=== PATIENT | male | born 1950 | race Caucasian/White ===

== ENCOUNTER 2024-02-20 16:27 | Outpatient (AMB) | payer MEDICARE, OTHER, SELFPAY ==
--- NOTE | 2024-02-20 16:32 | HO.NEPHOV ---
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 He has not had any renal stones lately. He is not taking any hydrochlorothiazide now. He has an aortic aneurysm and had been followed by [facility]. His prostatic symptoms are better ever since he had the TURP procedure. He denies any orthostatic symptoms, chest pain, shortness of breath, paroxysmal nocturnal dyspnea, orthopnea, pedal edema, hematuria, UTI, fever, nausea, vomiting, diarrhea or suprapubic pain. His blood pressure has been at goal. His weights have been stable. He does not take any excessive nonsteroidal anti-inflammatories. He otherwise was feeling well. [facility] Medical History (Updated 04/20/24 @ 18:10 by Gokul Kauffman MD) Nephrolithiasis Surgical History (Updated 02/20/24 @ 16:37 by Mel Gauthier MA) H/O hernia repair S/P TURP Family History (Updated 02/20/24 @ 16:36 by Mel Gauthier MA) Mother Lung cancer Sister Lung cancer Father Heart disease Social History (Updated 02/20/24 @ 16:36 by Mel Gauthier MA) Alcohol intake: current Comment: Socially Patient Tobacco Use Status: Never used Tobacco Review of Systems Const All systems reviewed & are unremarkable except as noted in HPI and below Physical Exam Vital Signs: Last Vital Signs Pulse 63 02/20/24 16:33 BP 126/70 02/20/24 16:33 Pulse Ox 96 02/20/24 16:33 Oxygen Delivery Method Room Air 02/20/24 16:33 BMI result Body Mass Index 23.1 Const General: comfortable and no acute distress Orientation/consciousness: patient oriented x3 HEENT Head: Yes normocephalic Mouth: Normal oral and palatal mucosa present Eyes EOM: EOMs intact bilaterally Neck Neck: Yes supple Resp Auscultation: clear to auscultation bilaterally Cardio Jugular venous distension: no JVD Rate: regular rate GI Palpation (GI): Soft to palpation Auscultation: normal bowel sounds General: Yes no CVA tenderness Back/Spine/Pelvis Back: no CVA tenderness Skin General skin exam: no rashes or lesions noted Neuro General: patient oriented x3 and moves all extremities Extrem General: Yes no pedal edema Results Reviewed Nephrology Results: No Data to Display Assessment & Plan Assessment & Plan (1) Nephrolithiasis: Code(s): N20.0 - Calculus of kidney Category: Medical Plan Mr. Myers has been having renal calculi since 1999. His first recurrence was in 2014 and subsequently in 2017. He had seen urologist and had undergone ESWL. At that time he had cystoscopy as well as stent insertion. He is not passing any grit or gravel now. He has no hematuria. He is trying to maintain adequate fluid intake. His renal functions have been stable. He tries to maintain low-sodium diet and to keep up with more fruits and vegetables. He had taken hydrochlorothiazide in the past but stopped taking them now. After the next visit I plan to order a follow-up renal ultrasound for surveillance. His blood pressure has been at goal. I did not make any medication changes today. All these have been discussed in detail. He had the opportunity to ask questions and all were answered to satisfaction. Follow-up appointment given. Coding Level of Care Code Est Pt Level 4 (97476) Diagnoses Nephrolithiasis N20.0
[2024-02-20 16:33] VITALS: BP 126/70; PULSE 63; O2SAT 96; BMI 23.1
== END 2024-02-20 16:59 | disposition home or self-care (01) ==
PROVIDERS: PCP Pediatrics; Visit Provider Internal Medicine Nephrology
DX: N20.0 Calculus of kidney (principal)
CPT/HCPCS: 99214

== ENCOUNTER → 2024-02-20 16:27 | Outpatient (BNVA) | payer OTHER, SELFPAY | PROVIDERS: PCP Pediatrics; Visit Provider Internal Medicine Nephrology ==

== ENCOUNTER 2024-08-20 10:10 | Outpatient (AMB) | payer OTHER, SELFPAY ==
--- OUTSIDE RECORDS SUMMARY | 2024-08-20 10:19 | XMS_ITS | Continuity of Care Document ---
Author Organization [facility] Address [address] [place], [place] [address]- [facility] [place] [facility] [place] Name Relationship Address Phone SRINATH LOMAS Personal Relationship Unknown Unav ailable SAUNDERS, JANETTE Personal Relationship Unknown Unavai lable SAUNDERS, JANETTE Personal Relationship Unknown Unavai lable LINDFORS, SRINATH Personal Relationship Unknown Unav ailable LINDFORE, SRINATH Personal Relationship Unknown Unav ailable SAUNDERS, SRINATH Personal Relationship Unknown Unavai lable LINDFORS, SRINATH Personal Relationship Unknown Unav ailable LINDFORS, SRINATH spouse Unknown Unavailable LINDFORS, SRINATH A Personal Relationship Unknown Un available LINDFORS, SRINATH Personal Relationship Unknown Unav ailable LINDFORE, SRINATH Personal Relationship Unknown Unav ailable LINDFORS, SRINATH Personal Relationship Unknown Unav ailable LINDFORS, SRINATH Personal Relationship Unknown Unav ailable Care Team Providers Care Loan Adviser Name Role Phone Sofie Dhillon DO Primary Care Physician ( [phone] Encounter [facility]CT R [id number] Date(s): 06/24/24 - 07/24/24 [facility] [address] [place] [address] Attending Physician: AdmBuster nichole Admitting Physician: trBuster Referring Physician: Admtr, Ar8 Encounter Type: Triage Allergies, Adverse Reactions, Alerts No Known Medication Allergies Immunizations Given and Recorded Vaccine Date Status Refusal Reason zoster vaccine, inactivated 08/08/23 Recorded influenza virus vaccine, inactivated 08/08/23 Bryon rded influenza virus vaccine, inactivated 06/20/22 Bryon rded influenza virus vaccine, inactivated 1 06/27/21 Gi christiane influenza virus vaccine, inactivated 06/16/20 Bryon rded influenza virus vaccine, inactivated 07/16/19 Bryon rded influenza virus vaccine, inactivated 07/14/18 Bryon rded influenza virus vaccine, inactivated 07/10/17 Bryon rded influenza virus vaccine, inactivated 07/12/15 Bryon rded influenza virus vaccine, inactivated 07/14/14 Bryon rded SARS-CoV-2 mRNA ([id number]) vax 06/20/22 Recorded SARS-CoV-2 (COVID-19) mRNA-1273 vaccine 07/06/21 R ecorded SARS-CoV-2 (COVID-19) mRNA-1273 vaccine 10/27/20 R ecorded SARS-CoV-2 (COVID-19) mRNA-1273 vaccine 09/30/20 R ecorded pneumococcal 13-valent vaccine 2 05/04/21 Given tetanus/diphtheria/pertussis, acel(Tdap) 3 01/13/21 Given pneumococcal 23-valent vaccine 4 05/03/20 Given 1Result Comment: [facility]# [id number] 2Result Comment: [id number] 3Result Comment: [facility]# [id number] 4Result Comment: [facility]#[id number] Medications Aspirin Low Dose 81 mg oral delayed release tablet 1 tablet, By Mouth, Daily, # 90 tablet, 3 Refills, Maintenance, 03/06/24 12:01:00 PM EDT, [id number], 183, cm, 02/14/24 8:40:00 EDT, Height, 74.7, kg, 02/14/24 8:40:00 EDT, Dry Weight Start Date: 03/06/24 Stop Date: 04/05/24 Status: Ordered Quantity: 90.0 Unit: tablet Repeat number: 1 Aspirin Low Dose 81 mg oral delayed release tablet 1 tablet, By Mouth, Daily, # 90 tablet, 3 Refills, Maintenance, 04/29/23 11:41:00 AM EDT, [facility], 183, cm, 03/20/23 8:08:00 EDT, Height, 80, kg, 02/27/22 21:28:00 EDT, Dry Weight Start Date: 04/29/23 Stop Date: 05/29/23 Status: Ordered Quantity: 90.0 Unit: tablet Repeat number: 1 atorvastatin 80 mg oral tablet 1 tablet, By Mouth, Daily at bedtime, # 90 tablet, 3 Refills, Maintenance, 07/20/24 7:20:00 AM EST,[facility]/pharmacy #[id number], 183, cm, 06/24/24 8:45:00 EDT, Height, 74.7, kg, 02/14/24 8:40:00 EDT, Dry Weight Start Date: 07/20/24 Status: Ordered Quantity: 90.0 Unit: tablet Repeat number: 4 baclofen 5 mg oral tablet 1 tablet = 5 mg, By Mouth, 3 times a day, PRN Spasm, # 30 tablet, 0 Refills, Maintenance, 05/30/22 8:05:00 AM EDT, Tablet, [facility]/pharmacy #[id number], Partial fill upon patient request if the prescription is for a schedule II opioid drug., 183, cm, 05/24/22 13:32:00 EDT, Height, 80, kg, 02/27/22 21:28:00 EDT, Dry Weight Start Date: 05/30/22 Stop Date: 06/09/22 Status: Ordered Quantity: 30.0 Unit: tablet Repeat number: 1 Compression Stockings See Instructions, # 2 each, Refills 1, Tot. Refills 1, Maintenance, surgical, calf length 20-30 mm Hg, 02/14/24 9:17:00 AM EDT, Supply Start Date: 02/14/24 Status: Ordered Quantity: 2.0 Unit: each Repeat number: 2 Indication: Peripheral vascular disease, unspecified gabapentin 100 mg oral capsule 1, capsule, By Mouth, Daily at bedtime, # 30 capsule, Refills 2, Tot. Refills 2, Maintenance, 04/29/24 10:24:00 AM EDT, Route to Pharmacy Electronically, [facility]/pharmacy #[id number], 183, cm, 02/14/24 8:40:00 EDT, Height, 74.7, kg, 02/14/24 8:40:00 EDT, Dry Weight Start Date: 04/29/24 Status: Ordered Quantity: 30.0 Unit: capsule Repeat number: 3 Toprol XL 25 mg oral tablet, extended release 12.5 mg, 0.5, tablet, By Mouth, Daily, # 30 tablet, Refills 5, Tot. Refills 5, Maintenance, :01:00 PM EST, Route to Pharmacy Electronically, [facility]/pharmacy #[id number], Partial fill upon patient request if the prescription is for a schedule II opioid drug., 183, cm, 07/18/23 8:32:00 EST, Height, 80, kg, 02/27/22 21:28:00 EDT, Dry Weight Start Date: 09/20/23 Status: Ordered Quantity: 30.0 Unit: tablet Repeat number: 6 Vitamin D3 50,000 intl units oral capsule 1 capsule = 1,250 mcg, By Mouth, Every week, with food, # 13 capsule, 0 Refills, Maintenance, 11/08/23 11:37:00 AM EST, Capsule, [facility]/pharmacy #[id number], Partial fill upon patient request if the prescription is for a schedule II opioid drug., 183, cm, 11/05/23 12:43:00 EST, Height, 80, kg, 02/27/22 21:28:00 EDT, Dry Weight Start Date: 11/08/23 Stop Date: 02/06/24 Status: Ordered Quantity: 13.0 Unit: capsule Repeat number: 1 Problem List Condition Confirmation Course Effective Dates Status H ealth Status Informant Anemia Confirmed Active Ascending aortic aneurysm 4.5 cm 04/2021 Confirmed Active BPH (benign prostatic hyperplasia) TURP Oct 2020 Confirmed Active CAD (coronary artery disease) Confirmed Active Personal history of colonic polyps Confirmed 10/03/20 Active HLD (hyperlipidemia) Confirmed Active Glucose intolerance (impaired glucose tolerance) Confirmed Active Interstitial lung disease-Sarcoidosis Confirmed Active Nephrolithiasis Confirmed Active Hx of nephrolithotomy with removal of calculi Confirmed Active Vitamin D deficiency Confirmed Active Social History Social History Type Response Smoking Status Never (less than 100 in lifetime) entered on: 11/20/19 Sex Sex Representation Male (finding) Patient Care team information Care Team Personnel Name: Sofie Dhillon DO Position: [facility] Physician - Primary Care Member Role: PCP Address: [address] [place] [address] Adult [place] [address]- Telecom: Name: Mel Gauthier Position: [facility] AMB Nurse Member Role: Lifetime Consulting Physician Name: Raymundo Mcnally RN Position: [facility] RN Member Role: Primary Care Nurse Care Team Related Persons Name: SRINATH LOMAS Insurance Providers Guarantor name: LARISA SAUNDERS [place] Plan Information #: 1 Payer: MEDICARE PART B OUTPT Member Number: NA Policy Number: NA Group Number: NA Health Plan Information #: 2 Payer: [facility] Member Number: NA Policy Number: NA Group Number: NA
--- OUTSIDE RECORDS SUMMARY | 2024-08-20 10:19 | XMS_ITS | Continuity of Care Document ---
Author Organization [facility] Address [address] [place] [address]- Care Team Providers Care Industrial Relations Manager Name Role Phone Sofie Dhillon DO Primary Care Physician [place] [facility] [place] 08/07/24 - 08/14/24 [facility] [address] [place], [place] [address] Encounter Diagnosis Left hip pain(Discharge Diagnosis) - 08/07/24 CAD (coronary artery disease)(Discharge Diagnosis) - 08/07/24 Attending Physician: Linda Bender MD Encounter Type: Office Visit Allergies, Adverse Reactions, Alerts No Known Medication [...] vaccine, inactivated 07/14/14 Bryon rded SARS-CoV-2 mRNA ([id number]) vax 06/20/22 Recorded SARS-CoV-2 (COVID-19) mRNA-1273 vaccine 07/06/21 R ecorded SARS-CoV-2 (COVID-19) mRNA-1273 vaccine 10/27/20 R ecorded SARS-CoV-2 (COVID-19) mRNA-1273 vaccine 09/30/20 R ecorded pneumococcal 13-valent vaccine 2 05/04/21 Given tetanus/diphtheria/pertussis, acel(Tdap) 3 01/13/21 Given pneumococcal 23-valent vaccine 4 05/03/20 Given 1Result Comment: [facility]# [id number] 2Result Comment: [id number] 3Result Comment: [facility]# [id number] 4Result Comment: [facility]#[id number] Medications Aspirin Low Dose 81 mg oral delayed release tablet 1 tablet, By Mouth, Daily, # 90 tablet, 3 Refills, Maintenance, 03/06/24 12:01:00 PM EDT, [id number], 183, cm, 02/14/24 8:40:00 EDT, Height, 74.7, kg, 02/14/24 8:40:00 EDT, Dry Weight Start Date: 03/06/24 Stop Date: 04/05/24 Status: Ordered Quantity: 90.0 Unit: tablet Repeat number: 1 Aspirin Low Dose 81 mg oral delayed release tablet 1 tablet, By Mouth, Daily, # 90 tablet, 3 Refills, Maintenance, 04/29/23 11:41:00 AM EDT, [facility], 183, cm, 03/20/23 8:08:00 EDT, Height, 80, kg, 02/27/22 21:28:00 EDT, Dry Weight Start Date: 04/29/23 Stop Date: 05/29/23 Status: Ordered Quantity: 90.0 Unit: tablet Repeat number: 1 atorvastatin 80 mg oral tablet 1 tablet, By Mouth, Daily at bedtime, # 90 tablet, 3 Refills, Maintenance, 07/20/24 7:20:00 AM EST,[facility]/pharmacy #0950, 183, cm, 06/24/24 8:45:00 EDT, Height, 74.7, kg, 02/14/24 8:40:00 EDT, Dry Weight Start Date: 07/20/24 Status: Ordered Quantity: 90.0 Unit: tablet Repeat number: 4 baclofen 5 mg oral tablet 1 tablet = 5 mg, By Mouth, 3 times a day, PRN Spasm, # 30 tablet, 0 Refills, Maintenance, 05/30/22 8:05:00 AM EDT, Tablet, [facility]/pharmacy #0950, Partial fill upon patient request if [...] at bedtime, # 30 capsule, Refills 2, Maintenance, 08/12/24 10:58:00 AM EST, Route to Pharmacy Electronically, [facility] 404[facility], 183, cm, 08/07/24 10:02:00 EST, Height, 74.7,kg, 02/14/24 8:40:00 EDT, Dry Weight Start Date: 08/12/24 Status: Ordered Quantity: 30.0 Unit: capsule Repeat number: 1 naproxen 500 mg oral tablet 1 tablet = 500 mg, By Mouth, 2 times a day, with food;, # 28 tablet, 0 Refills, Maintenance, 08/07/24 10:14:00 AM EST, Tablet, [facility]/pharmacy #[id number], Partial fill upon patient request if the prescription is for a schedule II opioid drug., 183, cm, 08/07/24 10:02:00 EST, Height, 74.7, kg, 02/14/24 8:40:00 EDT, Dry Weight Start Date: 08/07/24 Stop Date: 08/21/24 Status: Ordered Quantity: 28.0 Unit: tablet Repeat number: 1 Toprol XL 25 mg oral tablet, extended release 12.5 mg, 0.5, tablet, By Mouth, Daily, # 30 tablet, Refills 5, Tot. Refills 5, Maintenance, :01:00 PM EST, Route to Pharmacy Electronically, [facility]/pharmacy #[id number], Partial fill upon patient request if [...] Refills, Maintenance, 11/08/23 11:37:00 AM EST, Capsule, [facility]/pharmacy #0950, Partial fill upon patient request if [...] Confirmed Active Vitamin D deficiency Confirmed Active Diagnosis Diagnosis Type Effective Dates Health Status Cl inical Service Informant Left hip pain Discharge Diagnosis 08/07/24 CAD (coronary artery disease) Discharge Diagnosis 08/07/24 Vital Signs Most recent to oldest [Reference Range]: 1 Height 183 cm (08/07/24 10:02 AM) Weight 80.0 kg (08/07/24 10:02 AM) Oxygen Saturation [94-100 %] 99 % (08/07/24 10:02 AM) Pulse Rate [55-90 bpm] 65 bpm (08/07/24 10:02 AM) Body Mass Index [18.5-24.99 kg/m2] 23.89 kg/m2 (08/07/24 10:02 AM) Blood Pressure [90-138/55-84 mm Hg] 129/ 69mm Hg (08/07/24 10:02 AM) Blood pressure sites Arm, left (08/07/24 10:02 AM) Weight Obtained Via Standing scale (08/07/24 10:02 AM) Social History Social History Type Response Smoking Status Never (less than 100 in lifetime) entered on: 11/20/19 Sex Sex Representation Male (finding) Note * Delilah Yuan: PERFORM Event Display: Patient Education/Instruction Authored Date: [id number] Ambulatory Adult Visit Summary [facility] [address] [place] [address] Name: LARISA SAUNDERS : 1950?? Visit: 08/07/2024 09:50?? Ambulatory Visit Instructions ?? Your Care Team Primary Care Provider Sofie Dhillon DO? This Visit Provider Linda Bender MD Your Diagnosis Left hip pain CAD (coronary artery disease) Vitals Signs Pulse Rate: 65 bpm Height: 183 cm Systolic Blood Pressure: 129 mm Hg Weight: 80 kg Diastolic Blood Pressure: 69 mm Hg Body Mass Index: 23.89 kg/m2 Oxygen Saturation: 99 % Body surface area: 2.02 What to do next Instructions From Your Provider try naproxen twice a day for 2 weeks; stop aspirin for 2 weeks referral for physical therapy for hip pain Scheduled Follow-Up Appointments 2023 1:20 PM EST ?? With: Sofie Dhillon DO Where: [facility] [address] [place] [address]- Status: Pending Future Orders Vitamin D 25 Hydroxy Level - Routine, Once, 02/06/24 12:31:00 EDT, Order for Today, [facility], Blood?? CBC w/ Differential - Routine, Once, 02/14/24 9:09:00 EDT, Order for Today, [facility], Blood?? Medications The list below reflects the information in our records and provided by you today along with any changes made during this visit. Please continue your medications until treatment is completed or stopped by your provider. If this is different from the information you have or there are other questions,please contact the prescribing provider. What How Much When Why Instructions New Naproxen (naproxen 500 mg oral tablet) 1 tab(s) Oral Twice a day Duration: 14 Days with food; ?? Pickup at [facility]/pharmacy #0977 Unchanged Aspirin (Aspirin Low Dose 81 mg oral delayed release tablet) 1 tab(s) Oral Daily Duration: 30 Days Unchanged Aspirin (Aspirin Low Dose 81 mg oral delayed release tablet) 1 tab(s) Oral Daily Duration: 30 Days Unchanged Atorvastatin (atorvastatin 80 mg oral tablet) 1 tab(s) Oral Daily at Bedtime Unchanged Baclofen (baclofen 5 mg oral tablet) 1 tab(s) Oral 3 times a day as needed for Spasm Duration: 10 Days Unchanged Cholecalciferol (Vitamin D3 50,000 intl units oral capsule) 1 capsule Oral Every week Duration: 90 Days with food ?? Unchanged Durable Medical Equipment (Compression Stockings) See instructions Peripheral vascular disease surgical, calf length 20-30 mm Hg ?? Unchanged Gabapentin (gabapentin 100 mg oral capsule) 1 capsule Oral Daily at Bedtime Unchanged Metoprolol (Toprol XL 25 mg oral tablet, extended release) 0.5 tab(s) Oral Daily Pharmacy Information [facility]/pharmacy #[id number]: [address] [place] [address] [phone] Medications and Immunizations Administered Medications Given During Visit No medications given during this visit.?? Allergies (NKA means No Known Allergies) No Known Medication Allergies Common Emergency Awareness Tips IS IT A STROKE? Act FAST and Check for these signs: FACE Does the face look uneven? ARM Does one arm drift down? SPEECH Does their speech sound strange? TIME Call at any sign of stroke ?? Heart Attack Signs Chest discomfort: Most heart attacks involve discomfort in the center of the chest and lasts more than a few minutes, or goes away and comes back. It can feel like uncomfortable pressure, squeezing, fullness or pain. Discomfort in upper body: Symptoms can include pain or discomfort in one or both arms, back, neck, jaw or stomach. Shortness of breath: With or without discomfort. Other signs: Breaking out in a cold sweat, nausea, or lightheaded. Remember, MINUTES DO MATTER. If you experience any of these heart attack warning signs, call to get immediate medical attention! ?? Smoking can increase your chances of developing chronic health problems and can cause harmful effects to other family members in your house. If you smoke, you are strongly encouraged to quit. Please call [employer] at [phone] or 4-138-316Traxo ([phone]) or log in to www.[facility] [employer] [employer]org for referrals to smoking cessation programs. ?? The National Suicide Prevention Hotline is available 01/04 if you or someone you know needs to find a reason to keep living. By calling 2-714-717-[employer] (4439) you'll be connected to a skilled, trained counselor at a crisis center in your area. [facility] Portal You can view and manage your care through the patient portal or by using a health care becca of your choosing. [employer] is a website that allows you to securely view your medical information including your hospital discharge summary, office visit summaries, medications and follow-up visits. You can also request appointments, renew medications, and request access to your medical information using a health care becca of your choosing, or just ask a question. You can enroll at [email or web address] [employer]org or register during your next office visit. [facility], in keeping with [facility] guidance, no longer requires face masks for staff, patientsor visitors in most situations. Similiar to time spent indoors at other locations, there is the chance that you were exposed to repiratory viruses during your time with us (such as flu or COVID-19). If you develop symptoms concerning for a viral respiratory infection, please seek testing (and treatment if indicated) from your medical provider or home test kit. ?? Disclaimer: The information provided is of a general nature and is intended to be used in conjunction with the recommendations and advice of your health care practitioner. Every effort has been made to ensure that the information provided is accurate and complete at the time it is provided to you however, as your needs change, or, as new information becomes available, different or additional instructions may be required. ?? If you have questions, please consult with your primary care provider or pharmacist, as appropriate. This information is not intended to serve as substitution for assessment and evaluation by a qualified health care provider. If you do not have a primary care provider, you may find a [facility] provider by calling [facility] at [phone]. Patient Care team information Care Team Personnel Name: Sofie Dhillon DO Position: [facility] Physician - Primary Care Member Role: PCP Address: [address] [place] [address] Adult & Pediatric Medicine [address] Telecom: Name: Mel Gauthier Position: [facility] AMB Nurse Member Role: Lifetime Consulting Physician Name: Raymundo Mcnally RN Position: [facility] RN Member Role: Primary Care Nurse Care Team Related Persons Name: SRINATH LOMAS Insurance Providers Guarantor name: LARISA SAUNDERS Health Plan Information #: 2 Payer: [facility] Member Number: [id number] Policy Number: NA Group Number: [id number] Health Plan Information #: 1 Payer: MEDICARE PART B OUTPT Member Number: [id number] Policy Number: NA Group Number: NA
--- NOTE | 2024-08-20 10:24 | HO.NEPHOV_ITS ---
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 He has not had any renal stones lately. He is not taking any hydrochlorothiazide now. He has an aortic aneurysm and had been followed by [facility]. His prostatic symptoms are better ever since he had the TURP procedure. He denies any orthostatic symptoms, chest pain, shortness of breath, paroxysmal nocturnal dyspnea, orthopnea, pedal edema, hematuria, UTI, fever, nausea, vomiting, diarrhea or suprapubic pain. His blood pressure has been at goal. His weights have been stable. He does not take any excessive nonsteroidal anti- inflammatories. He otherwise was feeling well. [facility] Medical History (Updated 04/20/24 @ 18:10 by Gokul Kauffman MD) Nephrolithiasis Surgical History H/O hernia repair S/P TURP Family History Mother Lung cancer Sister Lung cancer Father Heart disease Social History Alcohol intake: current Comment: Socially Patient Tobacco Use Status: Never used Tobacco Review of Systems Const All systems reviewed & are unremarkable except as noted in HPI and below Physical Exam Vital Signs: Last Vital Signs BP 102/70 08/20/24 10:25 BMI result Body Mass Index 24.1 Const General: comfortable and no acute distress Orientation/consciousness: patient oriented x3 HEENT Head: Yes normocephalic Mouth: Normal oral and palatal mucosa present Eyes EOM: EOMs intact bilaterally Neck Neck: Yes supple Resp Auscultation: clear to auscultation bilaterally Cardio Jugular venous distension: no JVD Rate: regular rate GI Palpation (GI): Soft to palpation Auscultation: normal bowel sounds General: Yes no CVA tenderness Back/Spine/Pelvis Back: no CVA tenderness Skin General skin exam: no rashes or lesions noted Neuro General: patient oriented x3 and moves all extremities Extrem General: Yes no pedal edema Results Reviewed Nephrology Results: No Data to Display Assessment & Plan Assessment & Plan (1) Nephrolithiasis: Code(s): N20.0 - Calculus of kidney Category: Medical Plan Mr. Myers has been having renal calculi since 1999. His first recurrence was in 2014 and subsequently in 2017. He had seen urologist and had undergone ESWL. He has a follow up USS with Urology. He had cystoscopy as well as stent insertion in the past . He is not passing any grit or gravel now. He has no hematuria. He is trying to maintain adequate fluid intake. His renal functions have been stable. He tries to maintain low-sodium diet and to keep up with more fruits and vegetables. He had taken hydrochlorothiazide in the past but stopped taking them now. His blood pressure has been at goal. I did not make any medication changes today. All these have been discussed in detail. He had the opportunity to ask questions and all were answered to satisfaction. Follow-up appointment given Orders: Orders 2 Blood Urea Nitrogen 1 Year N20.0 - Calculus of kidney Electrolytes 1 Year N20.0 - Calculus of kidney Creatinine 1 Year N20.0 - Calculus of kidney Calcium 1 Year N20.0 - Calculus of kidney Coding Level of Care Code Est Pt Level 4 (47482) Diagnoses Nephrolithiasis N20.0
[2024-08-20 10:25] VITALS: BP 102/70; BMI 24.1
== END 2024-08-20 10:59 | disposition home or self-care (01) ==
PROVIDERS: PCP Pediatrics; Visit Provider Internal Medicine Nephrology
DX: N20.0 Calculus of kidney (principal)
CPT/HCPCS: 99214

== ENCOUNTER 2025-08-31 10:00 | Outpatient (AMB) | payer OTHER, SELFPAY ==
[2025-08-31 10:04] VITALS: BP 98/62; PULSE 53; O2SAT 99; BMI 25.1
--- NOTE | 2025-08-31 10:04 | HO.NEPHOV_ITS ---
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 He has not had any renal stones lately. He is not taking any hydrochlorothiazide now. He has an aortic aneurysm and had been followed by [facility]. His prostatic symptoms are better ever since he had the TURP procedure. He denies any orthostatic symptoms, chest pain, shortness of breath, paroxysmal nocturnal dyspnea, orthopnea, pedal edema, hematuria, UTI, fever, nausea, vomiting, diarrhea or suprapubic pain. His blood pressure has been at goal. His weights have been stable. He does not take any excessive nonsteroidal anti- inflammatories. He otherwise was feeling well. [facility] Medical History (Updated 08/31/25 @ 10:06 by JUDD Gee) H/O nephrolithotomy with removal of calculi (~05/2025) Nephrolithiasis Surgical History H/O hernia repair S/P TURP Family History Mother Lung cancer Sister Lung cancer Father Heart disease Social History Alcohol intake: current Comment: Socially Patient Tobacco Use Status: Never used Tobacco Review of Systems Const All systems reviewed & are unremarkable except as noted in HPI and below Physical Exam Vital Signs: Last Vital Signs Pulse 53 08/31/25 10:04 BP 98/62 08/31/25 10:04 Pulse Ox 99 08/31/25 10:04 Oxygen Delivery Method Room Air 08/31/25 10:04 BMI result Body Mass Index 25.1 Const General: comfortable and no acute distress Orientation/consciousness: patient oriented x3 HEENT Head: Yes normocephalic Mouth: Normal oral and palatal mucosa present Eyes EOM: EOMs intact bilaterally Neck Neck: Yes supple Resp Auscultation: clear to auscultation bilaterally Cardio Jugular venous distension: no JVD Rate: regular rate GI Palpation (GI): Soft to palpation Auscultation: normal bowel sounds General: Yes no CVA tenderness Back/Spine/Pelvis Back: no CVA tenderness Skin General skin exam: no rashes or lesions noted Neuro General: patient oriented x3 and moves all extremities Extrem General: Yes no pedal edema Assessment & Plan Assessment & Plan (1) Nephrolithiasis: Code(s): N20.0 - Calculus of kidney Category: Medical Plan Mr. Myers has been having renal calculi since 1999. His first recurrence was in 2014 and subsequently in 2017. He had seen urologist and had undergone ESWL. He has a follow up USS with Urology. He had cystoscopy as well as stent insertion in the past . He is not passing any grit or gravel now. He has no hematuria. He is trying to maintain adequate fluid intake. His renal functions have been stable. He tries to maintain low-sodium diet and to keep up with more fruits and vegetables. He had taken hydrochlorothiazide in the past but stopped taking them now. His blood pressure has been at goal. I did not make any medication changes today. All these have been discussed in detail. He had the opportunity to ask questions and all were answered to satisfaction. Follow-up appointment given Orders: Orders Calcium 1 Year N20.0 - Calculus of kidney Protein Creatinine Ratio, Ur 1 Year N20.0 - Calculus of kidney UA and rflx microscopic 1 Year N20.0 - Calculus of kidney Electrolytes 1 Year N20.0 - Calculus of kidney Blood Urea Nitrogen 1 Year N20.0 - Calculus of kidney Creatinine 1 Year N20.0 - Calculus of kidney Coding Level of Care Code Est Pt Level 4 (53476) Diagnoses Nephrolithiasis N20.0
--- OUTSIDE RECORDS SUMMARY | 2025-08-31 11:03 | XMS_ITS | Clinical Summary ---
Author Organization [facility] Address [address] [place] [address] Phone Care Team Providers Care Custodial Worker Name Role Phone Sofie Dhillon Miller Primary Care Provider Allergies No known active allergies Medications aspirin 81 mg EC tablet Take 1 tablet (81 mg total) by mouth 1 (one) time each day. Active gabapentin (NEURONTIN) 100 mg capsule Take 1 capsule (100 mg total) by mouth at bedtime. 5 Active atorvastatin (LIPITOR) 80 mg tablet Take 1 tablet (80 mg total) by mouth at bedtime. 5 Active metoprolol succinate (TOPROL-XL) 25 mg 24 hr tablet Take 0.5 tablets (12.5 mg total) by mouth 1 (one) time each day. 5 Active amoxicillin (AMOXIL) 500 mg capsule Take 1 capsule (500 mg total) by mouth every 12 (twelve) hours. 5 08/25/20 25 Discontinu ed(Therapy completed) phenazopyridine (PYRIDIUM) 200 mg tablet Take 1 tablet (200 mg total) by mouth every 8 (eight) hours if needed (urinary discomfort). 21 tablet 5 08/25/20 25 Discontinu ed(Therapy completed) Surgical History Surgery Date Site/Laterality Comments OTHER SURGICAL HISTORY KIDNEY STONE SURGERY COLONOSCOPY TRANSURETHRAL RESECTION OF PROSTATE HERNIA REPAIR Right INGUINAL WITH MESH Medical History Medical History Date Comments Myocardial infarction (CMS/HCC V24, CMS/HCC V28) Heart disease blocked artery Hernia, inguinal Neuromuscular disorder (CMS/HCC V24, CMS/HCC V28 ) Hyperlipidemia Chronic kidney disease Sarcoidosis Social History Tobacco Use Types Packs/Day Years Used Date Smoking Tobacco: Never Smokeless Tobacco: Never Tobacco Cessation:Counseling Given: Not Answered Alcohol Use Standard Drinks/Week Comments Yes 0 (1 standard drink = 0.6 oz pur e alcohol) BEER WEEKLY Interpersonal Safety Answer Date Record ed Physical Abuse Unrecognized value 05/28/2025 Verbal Abuse Unrecognized value 05/28/2025 Sex and Gender Information Value Date Recorded Sex Assigned at Not on file Legal Sex Male 1:47 PM EST Gender Identity Not on file Sexual Orientation Not on file Last Filed Vital Signs Vital Sign Reading Time Taken Comments Blood Pressure 123/79 05/28/2025 10:10 AM EDT Pulse 64 05/28/2025 10:10 AM EDT Temperature 36.5 C (97.7 F) 05/28/2025 9:35 AM EDT Respiratory Rate 12 05/28/2025 10:10 AM EDT Oxygen Saturation 96% 05/28/2025 10:10 AM EDT Inhaled Oxygen Concentration - - Weight 79.4 kg (175 lb) 08/25/2025 8:00 AM EST Height 182.9 cm (6') 08/25/2025 8:00 AM EST Body Mass Index 23.73 08/25/2025 8:00 AM EST Plan of Treatment Upcoming Encounters Date Type Department Care Team (Late st Contact Info) Description 09/01/2025 7:30 AM EST Hospital Encounter [facility] Endoscopy [address] [place] [id number] Mark Kurtz MD [address] [address] Jamari Rodriguez MD [address] [place] [id number] Domenic Boudreaux CRNA [address] [place] [id number] Health Maintenance Due Date Last Done Comments Hepatitis A Vaccines (1 of 2 - Risk 2-dose series) 1968 Hepatitis B Vaccines (1 of 3 - Risk 3-dose series) 2009 Depression Screening 09/09/2024 RSV Immunization Adult Patients (1 - 1-dose 75+ series) 2024 Cholesterol Screening (Lipid Panel) 04/02/2025 Hepatitis C Screening 04/02/2025 Medicare Annual Wellness Visit 04/02/2025 Social Influencers of Health Screening 04/02/2025 COVID-19 Vaccine ( season) 2025 06/18/2024, 06/12/2023, 06/20/2022, Additional history exists Influenza Vaccine (#1) 2025 , 08/08/2023, 06/20/2022, Additional history exists Falls Risk Assessment 05/28/2026 05/28/2025 Hypertension/CHF/CAD Annual BMP Blood Test 05/28/2026 05/28/2025 Colorectal Cancer Screening: Colonoscopy 10/03/2030 10/03/2020 DTaP,Tdap,and Td Vaccines (2 - Td or Tdap) 01/13/2031 01/13/2021 Pneumococcal Vaccine: 50+ Years Completed 05/04/2021, 05/03/2020 Zoster Vaccines Completed 05/05/2024, 08/08/2023 HIB Vaccines Aged Out No longer eligi ble based on patient's age to complete this topic HPV Vaccines Aged Out No longer eligi ble based on patient's age to complete this topic IPV Vaccines Aged Out No longer eligi ble based on patient's age to complete this topic MMR Vaccines Aged Out No longer eligi ble based on patient's age to complete this topic Meningococcal ACWY Vaccine Aged Out N o longer eligible based on patient's age to complete this topic Meningococcal B Vaccine Aged Out No l onger eligible based on patient's age to complete this topic RSV Immunization Patients Under 20 months Aged Out No longer eligible based on patient's age to complete this topic Varicella Vaccines Aged Out No longer eligible based on patient's age to complete this topic Medical Devices Implanted Type Area Building Services Coordinator Device Identifier Shelf Expiration Date Model / Serial / Lot Stent Uret [id number] Contr Percuflex Hydroplus - Sna - [id number] Implanted:Qty: 1 on 05/28/2025 by Ej Vergara MD at [facility] Stents Left: Ureter [employer]GYN[employer] Y 02/26/2028 [id number] / NA / [id number] Procedures Procedure Name Priority Date/Time Associated Diagnosis Comments BASIC METABOLIC PANEL Routine 05/28/2025 6:22 AM EDT COLONOSCOPY Routine 10/03/2020 11:11 AM EST from Last 3 Months or Most Recently Relevant to Health Maintenance Results * Basic metabolic panel (05/28/2025 6:22 AM EDT) Sodium 142 133 - 145 mmol/L LAB CHEMISTRY METHOD 05/28/2025 7:[address] [facility] Potassium 4.3 3.5 - 5.5 mmol/L LAB CHEMISTRY METHOD 05/28/2025 7:[address] [facility] Chloride 110 96 - 110 mmol/L LAB CHEMISTRY METHOD 05/28/2025 7:[address] [facility] CO2 26 21 - 32 mmol/L LAB CHEMISTRY METHOD 05/28/2025 7:[address] [facility] Anion Gap 6 3 - 11 LAB CHEMISTRY METHOD 05/28/2025 7:[address] [facility] Glucose 95 70 - 100 mg/dL LAB CHEMISTRY METHOD 05/28/2025 7:[address] [facility] BUN 22 5 - 25 mg/dL LAB CHEMISTRY METHOD 05/28/2025 7:[address] [facility] Creatinine 0.91 0.70 - 1.30 mg/dL LAB CHEMISTRY METHOD 05/28/2025 7:[address] [facility] eGFR 88 >=60 mL/min/1. 73m2 LAB CHEMISTRY METHOD 05/28/2025 7:[address] [facility] Comment:Calculation based on the Chronic Kidney Disease Epidemiology Collaboration (CKD-EPI) equation refit without adjustment for race. BUN/Creatinine Ratio 24.2 LAB CHEMISTRY METHOD 05/28/2025 7:[address] [facility] Calcium 9.3 8.5 - 10.5 mg/dL LAB CHEMISTRY METHOD 05/28/2025 7:35 AM EDT [facility] Blood Venous blood specimen / Unknown Venipuncture / Unknown 05/28/2025 6:22 AM EDT 05/28/2025 6:37 AM EDT Ej Vergara MD LAB BLOOD ORDERABLES Final Resul t [facility] ([facility] [address] [place] [address], * COLONOSCOPY (10/03/2020 11:11 AM EST) Anatomical Region Laterality Modality Endoscopy Historical Provider GI~PROCEDURE ORDERABLES F inal Result from Last 3 Months or Most Recently Relevant to Health Maintenance Insurance MEDICARE [facility] MEGHA RAMOS [id number] Advance Directives Documents on File Type Date Recorded 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 Health Care Decision (hx) 10/24/2020 AD PARKINSON DIRECTIVE Health Care Decision (hx) 10/24/2020 AD PARKINSON DIRECTIVE Health Care Decision (hx) 10/24/2020 AD PARKINSON DIRECTIVE Health Care Decision (hx) 10/23/2020 AD PARKINSON DIRECTIVE Health Care Decision (hx) 10/23/2020 AD PARKINSON DIRECTIVE Health Care Decision (hx) 10/23/2020 AD PARKINSON DIRECTIVE Health Care Decision (hx) 10/22/2020 AD PARKINSON DIRECTIVE Health Care Decision (hx) 10/22/2020 AD PARKINSON DIRECTIVE Health Care Decision (hx) 10/22/2020 AD PARKINSON DIRECTIVE Care Teams Custodial Worker Relationship Specialty Start Date End Date Sofie Dhillon DO [address] [place] [address] PCP - General Pediatrics 05/12/25
--- OUTSIDE RECORDS SUMMARY | 2025-08-31 11:03 | XMS_ITS | Clinical Summary ---
Author Organization [facility] Address [address] [facility] [address] [place] [address] Phone Care Team Providers Care Property Preservation Specialist Name Role Phone Sofie Dhillon Primary Care Provider [phone] Allergies Active Allergy Reactions Criticality Noted Date Comments Terazosin 03/03/2017 Medications atorvastatin (LIPITOR) 40 MG tablet Take 1 tablet by mouth 1 (one) time each day 05/14/2018 Active metoprolol succinate XL (TOPROL-XL) 25 MG 24 hr tablet Take 0.5 tablets by mouth every night 02/25/2020 Active hydroCHLOROthia zide 12.5 MG tablet TAKE 1 TABLET BY MOUTH EVERY DAY 90 tablet 3 11/14/2021 Active Active Problems Problem Noted Date Diagnosed Date Anemia 11/30/2021 Impaired glucose tolerance 11/30/2021 Renal stone 12/01/2020 Resolved Problems Problem Noted Date Diagnosed Date Resolved Date Interstitial pulmonary disease 11/30/2021 11/30/2021 History of polyp of colon 10/03/2020 Aneurysm of thoracic aorta 03/03/2017 0 11/30/2021 Benign prostatic hyperplasia 03/03/2017 11/30/2021 Diverticular disease 03/03/2017 022 Hyperlipidemia 03/03/2017 11/30/2021 Nodule of liver 03/03/2017 11/30/2021 Nodule of lung 03/03/2017 11/30/2021 Sarcoidosis 03/03/2017 11/30/2021 Subclinical hypothyroidism 03/03/2017 0 11/30/2021 Vitamin D deficiency 03/03/2017 022 Immunizations Immunization Administration Dates Next Due Moderna SARS-COV-2 07/06/2021,10/27/2020, 021 Pneumococcal Conjugate 13-Valent 05/04/2021 Pneumococcal Polysaccharide 05/03/2020 Tdap 01/13/2021 Family History Medical History Relation Comments Heart disease Father Relation Status Comments Father Social History Tobacco Use Types Packs/Day Years Used Date Smoking Tobacco: Never Smokeless Tobacco: Never Alcohol Use Standard Drinks/Week Comments Yes 0 (1 standard drink = 0.6 oz pure alcohol) Alcoholic Drinks/day: Occasional social drink Sex and Gender Information Value Date Recorded Sex Assigned at Not on file Legal Sex Male 4:49 PM EST Gender Identity Not on file Sexual Orientation Not on file Last Filed Vital Signs Vital Sign Reading Time Taken Comments Blood Pressure 100/70 01/09/2022 4:15 PM EDT Pulse 77 12/01/2020 4:08 PM EDT Temperature - - Respiratory Rate - - Oxygen Saturation - - Inhaled Oxygen Concentration - - Weight 78.9 kg (174 lb) 01/09/2022 4:15 PM EDT Height 182.9 cm (6') 02/25/2020 12:00 PM EDT Body Mass Index 23.6 02/25/2020 12:00 PM EDT Plan of Treatment Health Maintenance Due Date Last Done Comments Colorectal Cancer Screening: Annual FOBT 1998 Colorectal Cancer Screening: Colonoscopy 1998 Colorectal Cancer Screening: Sigmoidoscopy 1998 Influenza Vaccine (#1) 2025 Pneumococcal Vaccine: 50+ Years Completed 05/04/2021, 05/03/2020 Pneumococcal Vaccine: Peds ( 0 to 5 Years) and At-Risk Patients (6 to 49 Years) Discontinued 05/04/2021, 05/03/2020 Hepatitis B Vaccine Aged Out No longe r eligible based on patient's age to complete this topic Insurance [facility] [employer] Care Teams Property Preservation Specialist Relationship Specialty Start Date End Date Sofie Dhillon DO [address] [place] [phone] PCP - General Pediatrics 12/01/20
== END 2025-08-31 10:35 | disposition home or self-care (01) ==
LOC: HO.HKAS 10:02
PROVIDERS: PCP Pediatrics; Visit Provider Internal Medicine Nephrology
DX: N20.0 Calculus of kidney (principal)
CPT/HCPCS: 99214